=== PATIENT | male | born 1950 | race Caucasian/White ===

== ENCOUNTER 2022-05-01 00:24 | Emergency (ER) | payer OTHER ==
[~2022-05-01] VITALS: Ht 180.3 cm; Wt 113.4 kg
[2022-05-01] MEDS ORDERED: JANUMET XR 50-1 EAC1 (00:42)
[2022-05-01] MEDS ORDERED: SYNTHROID175 MCG (00:42)
[2022-05-01] MEDS ORDERED: TOPROL XL100 M1 (00:43)
[2022-05-01] MEDS ORDERED: CRESTOR40 MG (00:43)
[2022-05-01] MEDS ORDERED: GRALISE600 MG (00:43)
[2022-05-01] MEDS ORDERED: ISOSORBIDE DINI30 MG (00:43)
[2022-05-01] MEDS ORDERED: LIPOFEN150 MG (00:43)
[2022-05-01] MEDS ORDERED: SINGULAIR10 MG (00:44)
[2022-05-01] MEDS ORDERED: ZYRTEC10 M3 (00:44)
[2022-05-01] MEDS ORDERED: OMEPRAZOLE MAGN20 MG (00:44)
[2022-05-01] MEDS ORDERED: CHILDREN'S ASPI81 MG (00:44)
[2022-05-01] MEDS ORDERED: CIPRO500 MG PO (07:16)
[2022-05-01] MEDS ORDERED: TAMS0.4C PO (07:16)
[2022-05-01] MEDS ORDERED: KETO10TA2 PO (07:16)
== END 2022-05-01 07:48 | disposition home or self-care (01) ==
LOC: ER 00:24
DX: N20.1 Calculus of ureter (principal); N39.0 Urinary tract infection, site not specified; M54.9 Dorsalgia, unspecified